=== PATIENT | female | born 1955 | race Caucasian/White ===

== ENCOUNTER 2021-02-22 02:50 | Outpatient (CLI) | payer MEDICARE | END 2021-02-22 02:51 | disposition critical access hospital (66) | LOC: EMS 02:50 | DX: M54.50 Low back pain, unspecified (principal) | CPT/HCPCS: A0425; A0429 ==

== ENCOUNTER 2021-02-22 03:08 | Emergency (ER) | payer MEDICARE ==
[2021-02-22] MEDS ORDERED: oxyCODONE 5 MG TABLET PO STA (03:24)
--- NOTE | 2021-02-22 03:27 | ED Physician Documentation ---
History of Present Illness - Stated complaint Stated Complaint: L ANKLE SWELLING - Chief complaint Chief Complaint: Ext Problem - History obtained from History obtained from: Patient - Additonal information Additional information: 65-year-old woman with history of necrotizing fasciitis of the right upper extremity, well-healed for several years now, presents with left ankle swelling for the past few days. Patient states that she has been "rough in it" and that she has been having progressive difficulty bearing weight as well as pain localized to left ankle associated with swelling. Pain is nonradiating, aching, moderate severity, nonradiating, worse with range of motion of the ankle and with weightbearing. denies fevers. Patient states "I think I might need some IV fluids". Review of Systems Musculoskeletal: reports: Extremity pain PD PAST MEDICAL HISTORY - Past Medical History Past Medical History: Yes Respiratory: Asthma GI: GERD Musculoskeletal: Chronic back pain - Past Surgical History Past Surgical History: Yes Ortho: Arthroscopic surgery - Present Medications Home Medications: Ambulatory Orders Medication Instructions Recorded Confirmed Omeprazole 40 mg PO DAILY 02/22/21 02/22/21 - Allergies Allergies/Adverse Reactions: Allergies Allergy/AdvReac Type Severity Reaction Status Date / Time No Known Drug Allergies Allergy Verified 02/22/21 03:17 - Social History Does the pt smoke?: Yes Smoking Status: Current every day smoker Does the pt drink ETOH?: No Does the pt have substance abuse?: No - Immunizations Immunizations are current?: Yes PD ED PE NORMAL - Vitals Vital signs reviewed: Yes - General General: Alert and oriented X 3, No acute distress, Well developed/nourished - HEENT HEENT: Atraumatic, PERRL, EOMI - Neck Neck: Supple, no meningeal sign - Derm Derm: Normal color, Warm and dry - Extremities Extremities: No deformity, Other (discomfort with ROM of L ankle. no bony ttp. 2+ BL DP pulses. normal sensation, cap refill) - Neuro Neuro: No motor deficit, No sensory deficit - Psych Psych: Normal mood, Normal affect Results - Vitals Vitals: Vital Signs - 24 hr 02/22/21 02/22/21 03:17 03:25 Temperature 36.4 C L 36.4 C L Heart Rate 71 71 Respiratory 16 16 Rate Blood Pressure 108/66 108/66 O2 Saturation 98 98 Oxygen O2 Source Room air PD MEDICAL DECISION MAKING - ED course ED course: 65yF staying at the [facility] p/w L ankle swelling and pain. no known trauma. will obtain xrays, treat pain, reevaluate. pain improved s/p pain meds. xray without acute fracture. leti wrap and crutches provided. return precautions given. plan to f/u with pmd. Departure - Departure Disposition: Home, Self Care Clinical Impression: Pain in extremity Condition: Good Instructions: ED RICE Comments: You are seen in the emergency department for ankle pain. Your x-ray did not show any breaks in the bone and you do not have signs of infection. Please follow-up with your primary doctor. Return to the emergency department if you have any new or worsening symptoms or other concerns.
[2021-02-22 04:54] VITALS: BP 110/65
--- NOTE | 2021-02-22 07:37 | XRAY Report ---
PROCEDURE: Ankle 3 View LT INDICATIONS: ANKLE PAIN, SWELLING, DIFFICULTY BEARING WEIGHT TECHNIQUE: 3 views of the ankle were acquired. COMPARISON: None FINDINGS: Bones: Mild deformity of the distal fibula suggests remote fracture. No acute fractures or dislocati ons. Ankle mortise is normally aligned. No suspicious bony lesions. Soft tissues: No tibiotalar joint effusion. Achilles tendon appears normal. IMPRESSION: No evidence acute bony abnormality of the left ankle. If clinical suspicion and/or symptoms persist, further assessment with repeat plain films or advanced imaging (e.g., CT, MRI, or bone scan) may be helpful for further assessment. Findings are concordant with preliminary interpretation provided by [facility]. Reviewed by: Ruy Macdonald MD on 02/22/2021 7:35 AM PDT Approved by: Ruy Macdonald MD on 02/22/2021 7:35 AM PDT Station ID: [id number]
== END 2021-02-22 04:54 | disposition home or self-care (01) ==
LOC: EDSEX → ED 03:08
DX: M25.572 Pain in left ankle and joints of left foot (principal); R60.0 Localized edema; F17.200 Nicotine dependence, unspecified, uncomplicated
CPT/HCPCS: 73610; 99282; 99283; A9270